=== PATIENT | female | born 1965 | race Caucasian/White ===

== ENCOUNTER 2016-02-11 02:58 | Emergency (ER) | payer SELFPAY ==
[~2016-02-11] VITALS: Ht 170.2 cm; Wt 76.1 kg
[~2016-02-11 02:58] MED LIST: CITA40TA12 PO; MULT-506 PO; TRAM-10 PO
[2016-02-11 03:06] VITALS: TEMP 37.3; Ht 170.2 cm; Wt 76.1 kg
[2016-02-11] MEDS ORDERED: OXYCODONE HCL IR 5 MG TAB (IMMEDIATE RELEASE) PO STA (03:20)
[2016-02-11] MEDS ORDERED: OXYC1TAB3 PO (03:24)
[2016-02-11] MEDS ORDERED: AMOX875T PO (03:24)
[2016-02-11] MEDS ORDERED: PRED50TA PO (03:24)
--- NOTE | 2016-02-11 03:24 | EMERGENCY ROOM VISIT NOTE ---
History Report prepared by Pita: Mitul Lopez Under the Supervision of: Dr. González Kerr M.D. First contact with patient: 03:12 Chief Complaint: EAR PAIN Stated Complaint: EAR PAIN History of Present Illness The patient is a 50 year old female who presents to the Emergency Room with complaints of persistent right ear pain since 2300 last night. The pain is rated 9/10 in severity. The patient has had URI symptoms for several days, including cough, congestion, and fevers. She denies lymphadenopathy. The patient hasn't noticed any drainage from the ear. The patient cannot recall her last ear infection. She was immunized for influenza this year. The patient does not have diabetes. She is a smoker. Source of History: patient Onset: 2299 last night Position: ear (right) Symptom Intensity: 9/10 Timing: other (persistent) Associated Symptoms: + cough, + fevers, No lymphadenopathy Review of Systems See HPI for pertinent positives & negatives. A total of 6 systems reviewed and were otherwise negative. Past Medical & Surgical Medical Problems: (1) Bilateral tubal ligation (2) Hysterectomy (3) MIGRAINE UNSPECIFIED W/O INTRACT MGRN W/O STATUS MIGRAINOSUS (4) MYALGIA AND MYOSITIS NOS Family History No pertinent family history Social History Smoking Status: Current Every Day Smoker Marital Status: Current/Historical Medications Scheduled Amoxicillin & Pot Clavulanate (Augmentin 875-125 mg), 875 MG PO BID Citalopram Hydrobromide (Celexa), 40 MG PO DAILY Multivitamin (Multivitamin), 1 TAB PO DAILY Prednisone (Prednisone), 50 MG PO DAILY Scheduled PRN Oxycodone Immediate Rel Tab (Roxicodone Ir), 1-2 TAB PO Q4H PRN for Severe Pain Tramadol (Ultram), 1 TAB PO BID PRN for Pain Allergies Coded Allergies: Aminoglycosides (Verified Allergy, Unknown, 11/29/11) Uncoded Allergies: TUNA FISH (Allergy, Intermediate, ITCHY THROAT, 11/29/11) TOBRAMYCIN (Generic Allergy) (Allergy, Unknown, 05/01/03) Physical Exam Vital Signs Date Time Temp Pulse Resp B/P Pulse Ox O2 Delivery O2 Flow Rate FiO2 02/11/16 03:36 87 18 136/82 97 02/11/16 03:06 37.3 98 18 129/75 98 Room Air Physical Exam GENERAL: Patient is uncomfortable appearing in moderate distress. HEENT: No acute trauma, normocephalic atraumatic, mucous membranes moist, nasal erythema and rhinorrhea bilaterally, no scleral icterus. Bulging erythematous exudative right TM, no mastoid tenderness, no pain with movement of the ear. NECK: No stridor, no adenopathy, no meningismus, trachea is midline. LUNGS: No dyspnea. Clear to auscultation and equal bilaterally. No wheeze, no rhonchi. Periodic cough. HEART: Regular rate and rhythm. No murmurs, rubs, gallops appreciated. EXTREMITIES: Normal motion all extremities, no cyanosis, no edema. NEUROLOGIC: Alert and oriented, no acute motor or sensory deficits, no focal weakness, cranial nerves grossly intact. SKIN: No rash, no jaundice, no diaphoresis. Medical Decision & Procedures Medications Administered Medications (Trade) Dose Ordered Sig/Funmilayo Route Start Time Stop Time Status Last Admin Dose Admin Oxycodone HCl (Roxicodone Immediate Rel Tab) 10 mg NOW STAT PO 02/11/16 03:20 02/11/16 03:21 DC 02/11/16 03:32 10 MG Amoxicillin/ Clavulanate Potassium (Augmentin Tab) 875 mg ONE ONCE PO 02/11/16 03:30 02/11/16 03:31 DC 02/11/16 03:32 875 MG Prednisone (PredniSONE TAB) 60 mg NOW STAT PO 02/11/16 03:20 02/11/16 03:21 DC 02/11/16 03:32 60 MG ED Course 0313: The patient was evaluated in room A2. A complete history and physical exam was performed. 0320: Prednisone 60 mg PO, Oxycodone HCl 10 mg PO. 0322: The [place] Prescription Drug Monitoring Program was reviewed regarding this patient. She receives monthly Tramadol prescriptions. 0326: Reevaluated the patient. Discussed results and discharge instructions: She verbalized understanding and agreement. The patient is ready for discharge. 0330: Augmentin 875 mg PO. Medical Decision Differential: Viral, Tonsillitis, Strep, [place], Peritonsillar Abscess, Retropharyngeal Abscess, Otitis, Pneumonia, Influenza, amongst other pathologies entertained. 50 yr old female arrives with URI and now right ear pain consistent with OM on examination. No mastoiditis. With smoking history and amount of nasal edema seems reasonable doing short course prednisone in addition to Augmentin. Will give short course narcotics due to clearly this being quite uncomfortable. [place] Drug Monitoring Program Search Results: patient reviewed within database Drug Monitoring Findings: She receives monthly Tramadol prescriptions. Impression Primary Impression: Otitis media, right Additional Impression: Upper respiratory infection Scribe Attestation The scribe's documentation has been prepared under my direction and personally reviewed by me in its entirety. I confirm that the note above accurately reflects all work, treatment, procedures, and medical decision making performed by me. Departure Information Dispostion Home / Self-Care Prescriptions Oxycodone Immediate Rel Tab (ROXICODONE IR) 5 Mg Tab 1-2 TAB PO Q4H Y for Severe Pain, #12 TAB Prov: González Kerr M.D. 02/11/16 Prednisone (Prednisone) 50 Mg Tab 50 MG PO DAILY for 3 Days, #3 TAB Prov: González Kerr M.D. 02/11/16 Amoxicillin & Pot Clavulanate (Augmentin 875-125 mg) 1 Tab Tab 875 MG PO BID for 10 Days, #20 TAB Prov: González Kerr M.D. 02/11/16 Referrals Clarence Pruitt M.D. (PCP) Forms HOME CARE DOCUMENTATION FORM, IMPORTANT VISIT INFORMATION, WORK / SCHOOL INSTRUCTIONS Patient Instructions A Signature Page, ED Otitis Media Abx Tx, My [facility]
[2016-02-11] MEDS ORDERED: TRAM-10 PO (03:29)
[2016-02-11] MEDS ORDERED: AMOXICILLIN/CLAVULANATE TAB 875 MG TAB PO ONE (03:30)
[2016-02-11 03:36] VITALS: BP 136/82; PULSE 87; O2SAT 97
== END 2016-02-11 03:37 | disposition home or self-care (01) ==
LOC: C.EDB 02:59 → C.EDA 03:37
DX: H66.91 Otitis media, unspecified, right ear (principal); J06.9 Acute upper respiratory infection, unspecified; F17.210 Nicotine dependence, cigarettes, uncomplicated